=== PATIENT | female | born 1990 | race Caucasian/White ===

== ENCOUNTER 2020-03-11 06:48 | Inpatient (IN) | payer BC ==
[~2020-03-11 06:48] MED LIST: cefOXitin 2 GM Vial ONE
[2020-03-11] MEDS ORDERED: Acetaminophen 500 MG Tab PO ONE (07:00)
[2020-03-11] MEDS ORDERED: Scopolamine 1.5 MG Transdermal Patch TOP ONE (07:00)
[2020-03-11] MEDS ORDERED: Gabapentin 300 MG Cap PO ONE (07:00)
[2020-03-11] MEDS ORDERED: Celecoxib 200 MG Cap PO ONE (07:00)
[2020-03-11] MEDS ORDERED: Rocuronium 50 MG/5 ML Vial ONE ×2 (07:05→09:15)
[2020-03-11] MEDS ORDERED: Dexamethasone 4 MG/ML SDV ONE (07:05)
[2020-03-11] MEDS ORDERED: Lactated Ringers 1,000 ML ONE (07:05)
[2020-03-11] MEDS ORDERED: Succinylcholine 200 MG/10 ML MDV ONE (07:05)
[2020-03-11] MEDS ORDERED: Propofol 200 MG/20 ML SDV ONE (07:05)
[2020-03-11] MEDS ORDERED: Neostigmine Methylsulfate 1 MG/ML 5 ML Syringe ONE (07:05)
[2020-03-11] MEDS ORDERED: Glycopyrrolate 0.2 MG/ML 5 ML MDV ONE (07:05)
[2020-03-11] MEDS ORDERED: Ondansetron 4 MG/2 ML SDV ONE (07:05)
[2020-03-11] MEDS ORDERED: fentaNYL 250 MCG/5 ML SDV ONE ×2 (07:05→09:47)
[2020-03-11] MEDS ORDERED: cefOXitin 2 GM in Sodium Chloride 0.9% 50 ML IV ONE (07:15)
[2020-03-11] MEDS ORDERED: Ketamine 500 MG/5 ML MDV IV SCH (07:45)
[2020-03-11] MEDS ORDERED: Ketamine 50 MG in Sodium Chloride 0.9% 49.5 ML IV SCH (07:45)
[2020-03-11 08:12] LABS: HEMOGLOBIN A1C 5.6 % (4.5-6.2)
[2020-03-11] MEDS ORDERED: Dextrose 5%-Lactated Ringers 1,000 ML IV SCH (08:15)
[2020-03-11] MEDS ORDERED: MAGNESIUM SULFATE IV ONE (08:30)
[2020-03-11] MEDS ORDERED: SODIUM CHLORIDE 0.9% IV ONE (08:30)
[2020-03-11] MEDS ORDERED: hydrOXYzine HCL 100 MG/2 ML SDV IM ONE (12:08)
[2020-03-11] MEDS ORDERED: Labetalol 20 MG/4 ML Syringe IVPUSH PRN (15:17)
[2020-03-11] MEDS ORDERED: Metoclopramide 10 MG/2 ML SDV IVPUSH PRN (15:17)
[2020-03-11] MEDS ORDERED: Ondansetron 4 MG/2 ML SDV IVPUSH PRN (15:17)
[2020-03-11] MEDS ORDERED: diphenhydrAMINE 50 MG/ML SDV IVPUSH PRN (15:17)
[2020-03-11] MEDS ORDERED: HYDROmorphone 1 MG/ML Syringe IV PRN (15:17)
[2020-03-11] MEDS ORDERED: HYDROmorphone 0.5 MG/0.5 ML Syringe IVPUSH PRN (15:17)
[2020-03-11] MEDS ORDERED: Calcium Gluconate 10% 1 GM/10 ML SDV IVPUSH PRN (15:17)
[2020-03-11] MEDS ORDERED: Acetaminophen 500 MG Tab PO PRN (15:17)
[2020-03-11] MEDS ORDERED: hydrOXYzine HCL 100 MG/2 ML SDV IM PRN (15:17)
[2020-03-11] MEDS ORDERED: MVI, Adult with Vitamin K 10 ML, Thiamine 200 MG, Chromium/Copper/Mang/Selen/Zn 1 ML in... IV SCH ×4 (16:00)
[2020-03-11] MEDS: cefOXitin 2 GM in Sodium Chloride 0.9% 50 ML IV SCH ×2 (16:16→21:15)
[2020-03-11] MEDS: Heparin Sodium 5,000 Units/ML Vial SUBCUT SCH (16:23)
[2020-03-11] MEDS: Cyclobenzaprine 10 MG Tab PO PRN (17:01)
[2020-03-11] MEDS: Acetaminophen 500 MG Tab PO SCH (17:02)
[2020-03-11] MEDS ORDERED: Pantoprazole 40 MG Vial IVPUSH SCH (18:00)
[2020-03-11] MEDS: Doxepin 25 MG Cap PO SCH (21:13)
[2020-03-11] MEDS: Gabapentin 300 MG Cap PO SCH (21:13)
[2020-03-11] MEDS: Venlafaxine 75 MG Cap.ER PO SCH (21:14)
[2020-03-11] MEDS: Labetalol 100 MG Tab PO SCH (21:14)
[2020-03-11] MEDS: Dextrose 5%-Lactated Ringers 1,000 ML IV SCH (23:20)
[2020-03-12] MEDS: Acetaminophen 500 MG Tab PO SCH (02:07)
[2020-03-12] MEDS ORDERED: Iopamidol 612 MG/ML 50 ML SDV PO STA (03:20)
[2020-03-12] MEDS: Dextrose 5%-Lactated Ringers 1,000 ML IV SCH ×2 (04:56→13:48)
[2020-03-12] MEDS: Heparin Sodium 5,000 Units/ML Vial SUBCUT SCH ×2 (04:56→15:43)
[2020-03-12] MEDS: cefOXitin 2 GM in Sodium Chloride 0.9% 50 ML IV SCH ×2 (04:56→10:11)
[2020-03-12] MEDS ORDERED: Ondansetron 4 MG Tab.DIS PO PRN (06:52)
[2020-03-12] MEDS: SCOPOLAMINE PATCH CHECK TOP SCH (08:08)
[2020-03-12] MEDS: valACYclovir 1,000 MG Tab PO SCH (08:09)
[2020-03-12] MEDS: Labetalol 100 MG Tab PO SCH ×2 (08:09→20:47)
[2020-03-12] MEDS: Gabapentin 300 MG Cap PO SCH ×3 (08:09→20:47)
[2020-03-12] MEDS: Celecoxib 200 MG Cap PO SCH ×2 (08:10→20:46)
[2020-03-12] MEDS: Venlafaxine 75 MG Cap.ER PO SCH ×2 (08:10→20:47)
[2020-03-12] MEDS: Acetaminophen 160 MG Tab,Disintegrating PO SCH ×3 (08:21→19:09)
--- NOTE | 2020-03-12 12:09 | CR ---
[facility] HISTORY: Postbariatric surgery FINDINGS: Patient swallowed water-soluble contrast. Upright views of the abdomen show no evidence of extravasation or obstruction. There is a left upper quadrant surgical drain IMPRESSION: Status post bariatric surgery No extravasation or obstruction seen
[2020-03-12] MEDS: hydrOXYzine HCl 25 MG Tab PO PRN ×2 (12:19→19:09)
[2020-03-12] MEDS: Cyclobenzaprine 10 MG Tab PO PRN ×2 (12:19→20:45)
--- NOTE | 2020-03-12 14:25 | PN ---
DATE OF SERVICE: 03/12/2020 SUBJECTIVE: Orly is postoperative day #1. Upper GI this morning was a little bit slow. She has been up ambulating 3 times, using her incentive spirometer. Vital signs stable, afebrile. Oral intake 830 mL, urine output via Cole catheter 3655. SANDY drain put out 115 of a light red drainage. REVIEW OF SYSTEMS: Remainder of review of systems negative for any pertinent positives and negatives. OBJECTIVE: GENERAL: Orly is a pleasant 29-year-old female, alert and orientated. VITAL SIGNS: TPR at 0208; 97.7, 68, 16, blood pressure 156/87. HEENT: Negative. NECK: Supple. HEART: Regular rate and rhythm. LUNGS: Clear. ABDOMEN: Dressings dry and intact. Abdominal binder is on. EXTREMITIES: Without peripheral edema. ASSESSMENT: Laparoscopic duodenal switch, liver biopsy, repair of diaphragmatic hernia, and excision of mediastinal lipoma for morbid obesity, hepatomegaly, diaphragmatic hernia, and mediastinal lipoma. Date of surgery 03/11/2020. Surgeon: Lorne Cabezas MD. PLAN: 1. Dressing off, march shower. 2. Step 1 gastric bypass diet with milk and protein drinks. 3. Tylenol changed to Andre Meltaways 1000 mg p.o. q.6 hours. 4. Decrease IV to 100 mL per hour. 5. Discontinue IV Dilaudid. 6. Atarax 25 mg p.o. q.4 hours p.r.n. pain. 7. Zofran ODT 4 mg p.o. q.4 hours p.r.n. nausea and vomiting. 8. Communication order: 3 med cups per hour, 1 every 20 minutes to assure adequate oral intake and to teach patient how to gradually get in enough fluids throughout the day. 9. Continue ambulation and continue use of incentive spirometer. 10.We will evaluate p.r.n. or in a.m. Jenn Carreno PA-C /[id number]
[2020-03-12] MEDS ORDERED: MVI, Adult with Vitamin K 10 ML, Thiamine 200 MG, Chromium/Copper/Mang/Selen/Zn 1 ML in... IV SCH ×4 (16:00)
[2020-03-12] MEDS ORDERED: Pantoprazole 40 MG Delayed-Release Granules 1 Packet PO SCH (16:30)
[2020-03-12] MEDS: Doxepin 25 MG Cap PO SCH (20:50)
[2020-03-13] MEDS: Dextrose 5%-Lactated Ringers 1,000 ML IV SCH (01:56)
[2020-03-13] MEDS: Heparin Sodium 5,000 Units/ML Vial SUBCUT SCH (03:33)
[2020-03-13] MEDS: Acetaminophen 160 MG Tab,Disintegrating PO SCH ×2 (03:33→09:12)
[2020-03-13] MEDS: valACYclovir 1,000 MG Tab PO SCH (08:51)
[2020-03-13] MEDS: Labetalol 100 MG Tab PO SCH (08:51)
[2020-03-13] MEDS: Celecoxib 200 MG Cap PO SCH (08:51)
[2020-03-13] MEDS: Venlafaxine 75 MG Cap.ER PO SCH (08:51)
[2020-03-13] MEDS: Gabapentin 300 MG Cap PO SCH (08:51)
[2020-03-13] MEDS: SCOPOLAMINE PATCH CHECK TOP SCH (08:52)
[2020-03-13] MEDS ORDERED: Cyanocobalamin (Vitamin B12) 1,000 MCG/ML SDV IM ONE (09:00)
--- NOTE | 2020-03-13 11:10 | DISCH ---
ADMISSION DIAGNOSES: 1. Morbid obesity. 2. Body mas index of 57. 3. Essential hypertension. 4. Migraine without aura and without status migrainosus. 5. Anxiety and depression. 6. Herpes simplex. 7. Hidradenitis. DISCHARGE DIAGNOSES: 1. Laparoscopic duodenal switch. 2. Liver biopsy. 3. Repair of diaphragmatic hernia. 4. Excision of mediastinal lipoma. POSTOPERATIVE DIAGNOSES: 1. Morbid obesity. 2. Hepatomegaly. 3. Diaphragmatic hernia. 4. Mediastinal lipoma. DATE OF SURGERY: 03/11/2020. SURGEON: Lorne Cabezas MD. HISTORY: Orly Hoffman is a pleasant 29-year-old female with longstanding history of morbid obesity and increasing comorbidities. After preoperative evaluation and discussion of possible risks and possible complications, she wished to proceed with surgical procedure. HOSPITAL COURSE: Orly had her surgery on 03/11/2020. She had no operative complications. On postoperative day #1, her upper GI was normal. Her Cole catheter was discontinued. IV rate was decreased. She was able to start step 1 gastric bypass diet with no solids, and she tolerated that well. Her activity was good. Pain was controlled. She had no questions or concerns. On postoperative day #2, she was ready to be discharged in stable condition. PHYSICAL EXAMINATION: GENERAL: Orly Hoffman is a pleasant 29-year-old female. VITAL SIGNS: Height is 5 feet 10 inches. Weight is 397 pounds. TPR at 0648; 95.9, 79, 16, and blood pressure 153/87. HEENT: Negative. NECK: Supple. HEART: Regular rate and rhythm. LUNGS: Clear. ABDOMEN: Dressing is dry and intact. Abdominal binder is on. SANDY drain intact. EXTREMITIES: Without peripheral edema. DISPOSITION: Discharged to home. CONDITION: Stable and improving. FOLLOWUP APPOINTMENT: Jenn Carreno PA-C, 03/21/2020 at 10:00 a.m. NEW PRESCRIPTION: 1. Celebrex 200 mg p.o. b.i.d. 2. Cyclobenzaprine (Flexeril) 10 mg every 8 hours p.r.n. muscle spasms, #30. 3. Milk of magnesia 30 mL, take 1 daily for constipation, 2 doses were sent home with patient. 4. Zofran ODT 4 mg every 4 hours p.r.n. nausea. She is to resume home medications of Imitrex 100 mg oral as needed p.r.n. headaches, Effexor XR 75 mg oral twice daily. She has an IUD in called Marcie, levonorgestrel, and takes valacyclovir (Valtrex) 1000 mg oral as directed. Discontinue taking vitamins and supplements until after first postop appointment. DISCHARGE INSTRUCTIONS: Diet after discharge: Step 2 gastric bypass diet with no cereal until Wednesday04/12/2020. Drink 8 to 10 glasses of water a day. Other activity: Walk at least 6 times daily inside your home. Driving: Do not drive for 1 week. Notify provider if any fever, increased pain, swelling, redness, drainage, nausea, or vomiting. Wound incision care. Wear abdominal binder for 2 weeks and then as tolerated. Use incentive spirometer 10 times every hour while awake for 1 week.
[2020-03-13] MEDS ORDERED: Magnesium Hydroxide 400 MG/5 ML Susp 30 ML Cup PO ONE (12:00)
--- NOTE | 2020-03-14 11:23 | OR ---
DATE OF PROCEDURE: 03/11/2020 SURGEON: Lorne Cabezas MD PREOPERATIVE DIAGNOSIS: Morbid obesity. POSTOPERATIVE DIAGNOSES: 1. Morbid obesity. 2. Marked hepatomegaly. 3. Paraesophageal diaphragmatic hernia. 4. Mediastinal lipoma. OPERATIVE PROCEDURES: Diagnostic laparoscopy with: 1. Laparoscopic duodenal switch (68167). 2. Sanchez-Cut needle liver biopsy (18890). 3. Repair of paraesophageal diaphragmatic hernia (89372). 4. Excision of mediastinal lipoma (51028). ANESTHESIA: General. INDUSTRY ANALYST: Jenn Carreno PA-C INDICATION FOR PROCEDURE: This is a 29-year-old female presenting with longstanding morbid obesity and increasingly significant comorbidities. After preoperative evaluation and discussion, she wished to proceed with a duodenal switch. Potential risks of the procedure including bleeding, infection, leaks from various GI tract closures, as well as the possibility of cardiopulmonary, septic, or hemorrhagic complications leading to were discussed, and the patient wishes to proceed. DETAILS OF PROCEDURE: The patient was taken to the operating room and placed in a supine position. After general endotracheal anesthesia was induced, a Cole catheter was inserted, and the patient converted to a lithotomy position. The abdomen was then prepped and draped. At 20 cm inferior and 5 cm left of the xiphoid process, a transverse incision was made and the peritoneal cavity entered under direct vision with an Optiview trocar and inflated to 15 mmHg pressure with CO2. Following this, 6 additional trocars were placed across the upper and mid abdomen. Bilateral transversus abdominis plane blocks were placed. The patient was noted to have marked hepatomegaly with the liver being grossly fatty infiltrated. Sanchez-Cut needle biopsy was obtained from the left lobe of liver. Minimal bleeding from the biopsy sites was controlled with electrocautery. The liver was then retracted anteriorly. The patient was noted to have a moderate-sized paraesophageal diaphragmatic hernia with prolapse of some perigastric fat, as well as a tongue of omentum in a plane anterior to the course of the esophagus. Hernia was reduced and the peritoneum overlying incised and reflected downward. During the course of the dissection, a mediastinal lipoma was encountered, which was excised and sent as a separate specimen. Removal of the lipoma made the crural repair somewhat more adequate, and this was accomplished with 0 Ethibond sutures reinforced with PTFE pledgets. At this point, the omentum, beginning in the mid greater curvature, was divided away from the stomach with Harmonic Scalpel, and this continued proximally to include the short gastric vessels, including the highest and posterior short gastric vessels. The fundus along the left sabiha of the diaphragm was dissected somewhat further so as to avoid a cul-de-sac of the stomach in that area, following the sleeve portion of the procedure. The omentum was then divided in a distal direction to a point roughly 4 cm distal to the pylorus. The sleeve gastrectomy portion of the procedure was then initiated beginning 6 cm proximal to the pylorus, then continued underneath the incisura angularis maintaining adequate lumen so as to avoid this kinking off. First two firings were with black 60 mm loads. At that point then, a 40-Bulgarian chest tube was placed orally per Anesthesia and positioned along the lesser curvature of the stomach. Remainder of the sleeve gastrectomy was accomplished with a combination of reinforced black and reinforced purple ABHISHEK loads, and this gastric specimen was then set off to the side. The small bowel was then identified at the ileocecal valve and then traced back 300 cm distal to that point. This was confirmed to come up adequately to the area of the duodenum to complete the duodenal switch in one procession today. Given this, then the duodenum was divided 4 cm distal to the pylorus with 2 firings of the ABHISHEK beth. The small bowel 300 cm proximal to the ileocecal valve was then brought up to the divided duodenum, and stay sutures were then placed along the antimesenteric border of the small bowel at that level to the upper and lower aspects of the duodenum with 0 Ethibond stitches. Incisions were then made in the duodenum and adjacent ileum, and a two-layer closure was accomplished with outer layer of 0 Ethibond stitch and inner layer of 3-0 Vicryl stitch. Initially, a posterior layer was placed with the outer layer, and then beginning posteriorly Vicryl stitch was then placed circumferentially and tied anteriorly and then Ethibond stitch was then closed over that. The anastomosis was then reinforced with some fibrin sealant, as was the area around the esophagogastric junction. At that level, omentum was tacked up into the area around the esophagogastric junction as well, to limit leak risk at that area. At this point, air was injected into the chest tube, and the sleeve gastrectomy distended nicely while it was being covered with antibiotic-containing saline solution. No leaks were identified. Air flow through the duodenoileostomy was also confirmed with no leaks identified there as well. At that point, no further problems were noted. A single Piyush-Back drain was then taken through the left lateral trocar site and positioned up against the area of the esophagogastric junction. Prior to that, the gastric specimen had been removed. At this point, no further problems were noted. Trocars were removed and the peritoneal cavity deflated. Incision was closed with 4-0 Vicryl skin stitch and then drain affixed with a 4-0 Vicryl stitch as well. The patient was taken to the recovery room in satisfactory condition. Physician assistant offset press operator, Jenn Carreno, played an essential role in assisting in this case, helping to position the patient, retract structures as needed, as well as suturing and cutting sutures as indicated. Her presence improved patient safety and decreased the operative time. Lorne Cabezas MD /[id number]
== END 2020-03-13 11:45 | disposition home or self-care (01) | DRG 403 ==
LOC: JP.SDS 06:48 → JP.SDSSCHI 06:48 → EDSTATUS 08:15 → JP.MS 12:05
PROVIDERS: ADMIT Surgery; ATTEND Surgery
PROC: 0D194ZB Bypass Duodenum to Ileum, Percutaneous Endoscopic Approach (ICD-10-PCS; principal; 2020-03-11)
PROC: 0DB64Z3 Excision of Stomach, Percutaneous Endoscopic Approach, Vertical (ICD-10-PCS; 2020-03-11)
PROC: 0FB24ZX Excision of Left Lobe Liver, Percutaneous Endoscopic Approach, Diagnostic (ICD-10-PCS; 2020-03-11)
PROC: 0BQT4ZZ Repair Diaphragm, Percutaneous Endoscopic Approach (ICD-10-PCS; 2020-03-11)
PROC: 0JB63ZZ Excision of Chest Subcutaneous Tissue and Fascia, Percutaneous Approach (ICD-10-PCS; 2020-03-11)
DX: E66.01 Morbid (severe) obesity due to excess calories (principal); Z68.43 Body mass index [BMI] 50.0-59.9, adult; R16.0 Hepatomegaly, not elsewhere classified; D17.1 Benign lipomatous neoplasm of skin and subcutaneous tissue of trunk; K44.9 Diaphragmatic hernia without obstruction or gangrene; F41.9 Anxiety disorder, unspecified; F32.9 Major depressive disorder, single episode, unspecified; G43.909 Migraine, unspecified, not intractable, without status migrainosus; L73.2 Hidradenitis suppurativa; E78.5 Hyperlipidemia, unspecified; I10 Essential (primary) hypertension
CPT/HCPCS: 36415; 74240; 74240-26; 80053; 81025; 83036; 83735; 84100; 85027; 86850; 86900; 86901; 88304; 88307; 88313; 93005; A9270-GY; C9113; J0171; J0330; J0694; J1100; J1170; J1644; J2405; J2704; J2710; J2795; J3010; J3410; J3411; J3420; J3475; J3490; J7050; J7120; J7121; Q9967

== ENCOUNTER 2020-12-03 08:02 | Day surgery (SDC) | payer BC ==
[~2020-12-03 08:02] MED LIST changes: +Bupivacaine 0.5%/EPINEPHrine 1:200,000 50 ML MDV ONE; +Dexamethasone 4 MG/ML SDV ONE; +Glycopyrrolate 0.2 MG/ML 5 ML MDV ONE; +Neostigmine Methylsulfate 1 MG/ML 5 ML Syringe ONE; +Ondansetron 4 MG/2 ML SDV ONE; +Propofol 200 MG/20 ML SDV ONE; +Rocuronium 50 MG/5 ML Vial ONE; -cefOXitin 2 GM Vial ONE; +fentaNYL 250 MCG/5 ML SDV ONE
[2020-12-03] MEDS ORDERED: fentaNYL 100 MCG/2 ML SDV ONE (08:44)
[2020-12-03] MEDS ORDERED: Midazolam 1 MG/ML 2 ML SDV ONE (08:44)
[2020-12-03] MEDS ORDERED: Propofol 200 MG/20 ML SDV ONE (08:44)
[2020-12-03] MEDS ORDERED: Dextrose 5%-Lactated Ringers 1,000 ML IV SCH (09:00)
[2020-12-03] MEDS ORDERED: Acetaminophen 500 MG Tab PO ONE (09:00)
[2020-12-03] MEDS ORDERED: Scopolamine 1.5 MG Transdermal Patch TOP SCH (09:00)
[2020-12-03] MEDS: cefOXitin 2 GM in Sodium Chloride 0.9% 50 ML IV ONE ×2 (10:13→15:52)
[2020-12-03] MEDS ORDERED: Ketamine 500 MG/5 ML MDV IV SCH (10:15)
[2020-12-03] MEDS ORDERED: Ropivacaine 50 ML, dexAMETHasone 8 MG, EPINEPHrine 0.4 MG, Sodium Chloride 0.9% 27.6 ML NERVRT SCH ×4 (10:15)
[2020-12-03] MEDS ORDERED: Ketamine 50 MG in Sodium Chloride 0.9% 49.5 ML IV SCH (10:15)
[2020-12-03] MEDS ORDERED: Lactated Ringers 1,000 ML ONE (11:11)
[2020-12-03] MEDS ORDERED: Zolpidem 5 MG Tab PO PRN (12:51)
[2020-12-03] MEDS ORDERED: HYDROmorphone 0.5 MG/0.5 ML Syringe IVPUSH PRN (13:00)
[2020-12-03] MEDS ORDERED: Ondansetron 4 MG/2 ML SDV IVPUSH PRN (13:00)
[2020-12-03] MEDS ORDERED: HYDROmorphone 1 MG/ML Syringe IV PRN (13:00)
[2020-12-03] MEDS ORDERED: Pantoprazole 40 MG Vial IVPUSH SCH (14:00)
[2020-12-03] MEDS: cefOXitin 2 GM in Sodium Chloride 0.9% 50 ML IV SCH ×2 (15:27→22:05)
[2020-12-03] MEDS: Dextrose 5%-Lactated Ringers 1,000 ML IV SCH (17:31)
[2020-12-03] MEDS: Acetaminophen/HYDROcodone 325-5 MG Tab PO PRN ×2 (18:09→22:04)
[2020-12-03] MEDS: VERIFY SCOP PATCH TOP SCH (18:10)
[2020-12-03] MEDS: Venlafaxine 75 MG Tab PO SCH (20:32)
[2020-12-03] MEDS: Venlafaxine 37.5 MG Tab PO SCH (20:32)
[2020-12-03] MEDS ORDERED: Venlafaxine 75 MG Tab PO SCH (21:00)
[2020-12-03] MEDS ORDERED: Venlafaxine 75 MG Cap.ER PO SCH (21:00)
[2020-12-04] MEDS: Dextrose 5%-Lactated Ringers 1,000 ML IV SCH (02:06)
[2020-12-04] MEDS: Acetaminophen/HYDROcodone 325-5 MG Tab PO PRN ×3 (02:30→11:50)
[2020-12-04] MEDS: Venlafaxine 75 MG Tab PO SCH (08:05)
[2020-12-04] MEDS: Venlafaxine 37.5 MG Tab PO SCH (08:11)
--- NOTE | 2020-12-04 08:25 | DISCH ---
ADMISSION DIAGNOSIS: Chronic cholecystitis and cholelithiasis. DISCHARGE DIAGNOSES: Laparoscopic cholecystectomy on 12/03/2020. Surgeon: Lorne Cabezas MD. HISTORY: Orly Hoffman is a 30-year-old female with chronic cholecystitis and cholelithiasis. After preoperative evaluation and discussion of possible risks and possible complications, she wished to proceed with surgical procedure. HOSPITAL COURSE: Orly had her surgery on 12/03/2020. She had no operative complications. On postoperative day #1, she was able to be discharged to home. Activity good. Vital signs stable, and pain was well managed. Oral intake was adequate. PHYSICAL EXAMINATION: GENERAL: Orly Hoffman is a 30-year-old female. She is alert and orientated. VITAL SIGNS: Height 5 feet 10 inches, weight is 217 pounds. BMI is 31. TPR is 97.5, 55, 16, and blood pressure 116/78. HEENT: Negative. NECK: Supple. HEART: Regular rate and rhythm. LUNGS: Clear. ABDOMEN: Dressings dry and intact. Abdominal binder is on. EXTREMITIES: Without peripheral edema. DISPOSITION: Discharged to home. CONDITION: Stable and improving. FOLLOWUP APPOINTMENT: 12/10/2020 at 9:30 a.m. for a virtual appointment, which will be combined postop with her 9-month post duodenal switch. She will get her sutures removed by her primary care provider on 12/13/2020. HOME MEDICATIONS: Diflucan 100 mg p.o. daily, #7; [place] 5/325 mg 1 to 2 tablets every 4 hours p.r.n. pain, #40. To resume all home medications. DIET: Usual diet as tolerated. Drink 8 to 10 glasses of water a day. ACTIVITY: As tolerated. No lifting greater than 10 pounds for 2 weeks. Driving: Do not drive for 1 week. Shower/bathing: May shower. DISCHARGE INSTRUCTIONS: Keep operative site clean and dry. Wear abdominal binder for 2 weeks and then as tolerated. Notify provider if any fever, increased pain, swelling, redness, drainage, nausea, or vomiting. SPECIAL INSTRUCTION: Use incentive spirometer 10 times every hour while awake for 1 week. /[id number]
[2020-12-04] MEDS ORDERED: valACYclovir 1,000 MG Tab PO SCH (09:00)
[2020-12-04] MEDS ORDERED: Estradiol 0.5 MG Tab PO SCH (09:00)
[2020-12-04] MEDS: VERIFY SCOP PATCH TOP SCH (12:23)
--- NOTE | 2020-12-08 15:22 | OR ---
DATE OF PROCEDURE: 12/03/2020 SURGEON: Lorne Cabezas MD PREOPERATIVE DIAGNOSIS: Chronic cholecystitis and cholelithiasis. POSTOPERATIVE DIAGNOSIS: Chronic cholecystitis and cholelithiasis. OPERATIVE PROCEDURE: Laparoscopic cholecystectomy (99566). ANESTHESIA: General. DIRECTOR OF ARCHIVES: Jenn Carreno PA-C. INDICATIONS FOR PROCEDURE: This is a 30-year-old status post previous Lance-en-Y gastric bypass presenting with cholelithiasis along with a nonfunctioning gallbladder. The plan is to proceed with a laparoscopic cholecystectomy. Potential risks of the procedure including bleeding, infection, injury to underlying viscera, problems with stones migrating to the common bile duct requiring additional procedures for correction were all reviewed and the patient wishes to proceed. DETAILS OF PROCEDURE: The patient was taken to the operating room and placed in a supine position. After general endotracheal anesthesia was induced, the abdomen was prepped and draped. A transverse epigastric incision was made. The peritoneal cavity entered under direct vision with an Optiview trocar and inflated to 15 mmHg pressure with CO2. Laparoscope was then reinserted. No underlying trocar insertion site injuries were seen. Following this, a 12 mm subumbilical trocar was placed along with 5 mm right subcostal trocar. The gallbladder was noted to be somewhat bhatia and edematous and contained some omental adhesions. The gallbladder was taken down with Harmonic scalpel and dissection then continued around the gallbladder neck and cystic duct junction. Once that area was well delineated along with the adjacent cystic artery, both structures were divided with clips 3 times proximally and once distally and divided and then the gallbladder dissected off the gallbladder bed using Harmonic scalpel and delivered through the epigastric trocar site. The gallbladder noted to contain a multitude of small black stones within it. The area of dissection was inspected. Piyush-Back drain was taken out of the right lateral trocar site and positioned in the area of the gallbladder fossa. There were no other problems noted. Bilateral subcostal transverse abdominis plane blocks were placed and the trocars removed. The fascia at the 12 mm site was closed with 0 Vicryl stitch and skin with 4-0 Vicryl skin stitch. Dressing was applied. The patient was taken to the recovery room in satisfactory condition. Physician assistant professor of radiology, Jenn Carreno, played an essential role in assisting in this case helping to position the patient, retract structures as needed as well as suturing and cutting sutures when indicated. Her presence improved patient safety and decreased the operative time. Lorne Cabezas MD /[id number]
== END 2020-12-04 13:10 | disposition home or self-care (01) ==
LOC: JP.SDS 08:02 → JP.MS 11:25 → JP.SDS 12-04 13:10
PROVIDERS: ATTEND Surgery
DX: K80.10 Calculus of gallbladder with chronic cholecystitis without obstruction (principal); E78.5 Hyperlipidemia, unspecified; I10 Essential (primary) hypertension; E66.9 Obesity, unspecified; Z98.84 Bariatric surgery status; Z79.899 Other long term (current) drug therapy; Z88.8 Allergy status to other drugs, medicaments and biological substances; Z68.31 Body mass index [BMI] 31.0-31.9, adult
CPT/HCPCS: 36415; 47562; 81025; 82247; 84075; 85025; 88304; A9270; C9113; J0171; J0694; J1100; J1170; J2250; J2405; J2704; J2710; J2795; J3010; J3490; J7120; J7121

== ENCOUNTER 2021-03-28 08:49 | Day surgery (SDC) | payer BC ==
[~2021-03-28 08:49] MED LIST changes: -Bupivacaine 0.5%/EPINEPHrine 1:200,000 50 ML MDV ONE; -Dexamethasone 4 MG/ML SDV ONE; -Glycopyrrolate 0.2 MG/ML 5 ML MDV ONE; +Lactated Ringers 1,000 ML IV ONE; +Midazolam 1 MG/ML 2 ML SDV ONE; -Neostigmine Methylsulfate 1 MG/ML 5 ML Syringe ONE; -Ondansetron 4 MG/2 ML SDV ONE; -Rocuronium 50 MG/5 ML Vial ONE; +fentaNYL 100 MCG/2 ML SDV ONE; -fentaNYL 250 MCG/5 ML SDV ONE
[2021-03-28] MEDS ORDERED: Scopolamine 1.5 MG Transdermal Patch TRDERM SCH (09:25)
[2021-03-28] MEDS ORDERED: Lactated Ringers 1,000 ML IV ONE (09:30)
[2021-03-28] MEDS ORDERED: Cyanocobalamin (Vitamin B12) 1,000 MCG/ML SDV IM ONE (09:45)
[2021-03-28] MEDS ORDERED: Glycopyrrolate 0.2 MG/ML 2 ML SDV IVPUSH ONE (10:00)
[2021-03-28] MEDS ORDERED: MVI, Adult with Vitamin K 10 ML, Thiamine 200 MG, Chromium/Copper/Mang/Selen/Zn 1 ML in... IV ONE ×4 (10:45)
[2021-03-28] MEDS ORDERED: Propofol 200 MG/20 ML SDV ONE (11:46)
--- NOTE | 2021-04-06 15:19 | OR ---
DATE OF PROCEDURE: 03/28/2021 SURGEON: Lorne Cabezas MD PREOPERATIVE DIAGNOSES: Persistent nausea and epigastric discomfort, status post duodenal switch. POSTOPERATIVE DIAGNOSES: 1. Extensive bile with esophagitis, gastritis, and duodenitis secondary to retained bile. 2. Suture eroded into lumen at duodenal ileostomy. OPERATIVE PROCEDURE: Upper gastrointestinal endoscopy with removal of foreign body (suture) at the duodenal ileostomy (05651). ANESTHESIA: IV sedation. INDICATIONS FOR PROCEDURE: The patient is status post duodenal switch little over a year ago. She presents now with ongoing nausea. The plan is to proceed with an upper GI endoscopy with biopsies and/or dilation as indicated. Potential risks including bleeding and perforation were discussed, and the patient wishes to proceed. DESCRIPTION OF PROCEDURE: She was taken to the operating room, placed in a left lateral decubitus position. IV sedation was administered after which the upper GI endoscope was passed orally through the length of the esophagus and then to the sleeve gastrectomy portion of the stomach, and from there, through the pylorus and duodenal ileostomy. The patient was noted to have extensive bile within the esophagus, the entire remaining stomach, and proximal duodenum. This was associated with diffuse inflammation in those areas. This was particularly prominent in the area of the duodenal bulb. This was not overtly ulcerated, but markedly edematous, reddened, and somewhat firm. The duodenal ileostomy itself was patent, and the small bowel beyond that point was unremarkable. There was a suture eroded into the lumen of the duodenal ileostomy. This was removed with endoscopic scissors and the procedure then concluded. At this point, the patient would appear to probably be having some problems with impaired gastric emptying resulting in the bile flowing in the above-noted locations and would probably benefit from conversion of a [id number] duodenal ileostomy to a Geis-tr-W-type configuration with evaluation of the limbs. The patient has lost a little bit more than the intended amount of weight, and we will assess that situation intraoperatively. We will schedule it for next Wednesday as an open approach. Lorne Cabezas MD /[id number]
== END 2021-03-28 12:40 | disposition home or self-care (01) ==
LOC: JP.SDS 08:49
PROVIDERS: ATTEND Surgery
DX: T18.3XXA Foreign body in small intestine, initial encounter (principal); K29.90 Gastroduodenitis, unspecified, without bleeding; K20.90 Esophagitis, unspecified without bleeding; Z93.2 Ileostomy status
CPT/HCPCS: 36415; 43247; 80053; 83735; 84100; 85027; A9270; J2250; J2704; J3010; J3411; J3420; J3490; J7120

== ENCOUNTER 2021-04-01 10:27 | Inpatient (IN) | payer BC ==
[~2021-04-01 10:27] MED LIST changes: +Dexamethasone 4 MG/ML SDV ONE; +Glycopyrrolate 0.2 MG/ML 5 ML MDV ONE; -Lactated Ringers 1,000 ML IV ONE; +Meropenem 500 MG SDV ONE; -Midazolam 1 MG/ML 2 ML SDV ONE; +Neostigmine Methylsulfate 1 MG/ML 5 ML Syringe ONE; +Ondansetron 4 MG/2 ML SDV ONE; +Rocuronium 50 MG/5 ML Vial ONE; +Succinylcholine 200 MG/10 ML MDV ONE; -fentaNYL 100 MCG/2 ML SDV ONE; +fentaNYL 250 MCG/5 ML SDV ONE
[2021-04-01] MEDS ORDERED: Ondansetron 4 MG/2 ML SDV IVPUSH PRN ×2 (10:42→18:00)
[2021-04-01] MEDS ORDERED: Naloxone 0.4 MG/ML SDV IVPUSH PRN (10:42)
[2021-04-01] MEDS ORDERED: HYDROmorphone/Normal Saline 15 MG/30 ML PCA IV PRN (10:42)
[2021-04-01] MEDS ORDERED: diphenhydrAMINE 50 MG/ML SDV IVPUSH PRN ×2 (10:42→18:00)
[2021-04-01] MEDS ORDERED: diphenhydrAMINE 25 MG Cap PO PRN (10:42)
[2021-04-01] MEDS ORDERED: Scopolamine 1.5 MG Transdermal Patch TOP SCH (10:45)
[2021-04-01] MEDS ORDERED: Acetaminophen 500 MG Tab PO ONE (10:45)
[2021-04-01] MEDS ORDERED: Naloxone 0.4 MG/ML SDV IV PRN (11:00)
[2021-04-01] MEDS ORDERED: Dextrose 5%-Lactated Ringers 1,000 ML IV SCH (11:30)
[2021-04-01] MEDS ORDERED: cefOXitin 2 GM in Sodium Chloride 0.9% 50 ML IV ONE (11:45)
[2021-04-01] MEDS ORDERED: Ketamine 500 MG/5 ML MDV IV SCH (12:00)
[2021-04-01] MEDS ORDERED: MAGNESIUM SULFATE IV ONE (12:00)
[2021-04-01] MEDS ORDERED: Ketamine 50 MG in Sodium Chloride 0.9% 49.5 ML IV SCH (12:00)
[2021-04-01] MEDS ORDERED: SODIUM CHLORIDE 0.9% IV ONE (12:00)
[2021-04-01] MEDS ORDERED: Magnesium Sulfate 2.3 GM in Sodium Chloride 0.9% 100 ML IV SCH (12:00)
--- NOTE | 2021-04-01 12:45 | PCM.HP.2 ---
H&P History of Present Illness - General Date of Service: 04/01/21 Admit Problem/Dx: Severe Acid Relux following a Duodenal Switch Weight Loss Surgery. Scheduled for Open Revision of Duodenoileostomy today case to follow. - History of Present Illness Initial Comments - Free Text/Narative: Orly had a Laparoscopic Duodenal Switch on 03/11/2020 and she has lost 215.5 lbs. She has had intermittent nausea and vomiting on and off for several weeks which has gotten more severe. An EGD was done last week and she was found to have severe bile reflux. Onset of Symptoms: Reports: Gradual Duration of Symptoms: Reports: Week(s): Location: Reports: Abdomen Quality: Reports: Burning Severity: Moderate Improves with: Reports: None Worsens with: Reports: None Associated Symptoms: Reports: Nausea/Vomiting - Related Data Allergies/Adverse Reactions: Allergies Allergy/AdvReac Type Severity Reaction Status Date / Time cat dander Allergy Other Verified 04/01/21 10:55 miconazole Allergy Rash Verified 04/01/21 10:55 sulfamethoxazole AdvReac Unknown Diarrhea Verified 04/01/21 10:55 [From Sulfamethoxazole-Trimethoprim] trimethoprim AdvReac Unknown Diarrhea Verified 04/01/21 10:55 [From Sulfamethoxazole-Trimethoprim] Home Medications: Home Meds SUMAtriptan succinate [Imitrex] 100 mg PO ASDIRECTED PRN 03/08/20 [History] levonorgestreL [Marcie] 1 each IY ASDIRECTED 03/08/20 [History] valACYclovir [Valtrex] 1,000 mg PO DAILY 03/08/20 [History] Ondansetron [Zofran ODT] 4 mg PO Q4H PRN #30 tab.dis 03/13/20 [Rx] Calcium Citrate/Vitamin D3 [Calcium Citrate - Vit D Caplet] 1 tab PO BID 11/29/20 [History] Cholecalciferol (Vitamin D3) [Vitamin D3] 10,000 unit PO DAILY 11/29/20 [History] Cyanocobalamin (Vitamin B-12) [B-12] 1 tab SL DAILY 11/29/20 [History] Folic Acid 1 mg PO BID 11/29/20 [History] Multivitamin 1 tab PO BID 11/29/20 [History] Nystatin [Mycostatin] 1 g TOP BID PRN 11/29/20 [History] Pantoprazole Sodium [Protonix] 40 mg PO DAILY 11/29/20 [History] Vitamin A 60,000 mg PO DAILY 11/29/20 [History] Vitamin B Complex [B Complex] 1 tab PO DAILY 11/29/20 [History] Zolpidem [Ambien] 5 mg PO QPM 11/29/20 [History] estradioL [Estrace] 1 mg PO DAILY 11/29/20 [History] Iron,Carbonyl/Vit C/Vit B12/Fa [Iron 100 Plus Tablet] 1 tab PO DAILY 12/03/20 [History] Venlafaxine [Effexor] 150 mg PO BID 12/03/20 [History] Past Medical History HEENT History: Reports: None Cardiovascular History: Reports: Hypertension Respiratory History: Reports: Sleep Apnea Gastrointestinal History: Reports: Cholelithiasis, Chronic Diarrhea, GERD, Hiatal Hernia GASTROENTEROLOGY NURSE History: Reports: Polycystic Ovaries, Other (See Below) Other OB/BYN History: IUD Neurological History: Reports: Migraines, Vertigo Psychiatric History: Reports: Anxiety, Depression Endocrine/Metabolic History: Reports: Obesity/BMI 30+ Hematologic History: Reports: B12 Deficiency Dermatologic History: Reports: Psoriasis - Infectious Disease History Infectious Disease History: Reports: Chicken Pox - Past Surgical History HEENT Surgical History: Reports: Adenoidectomy, LASIK, Myringotomy w Tube(s), Tonsillectomy Cardiovascular Surgical History: Reports: None Respiratory Surgical History: Reports: None GI Surgical History: Reports: Bariatric Procedure, EGD, Jennifer Fundoplication Endocrine Surgical History: Reports: None Neurological Surgical History: Reports: None Dermatological Surgical History: Reports: None Social & Family History - Family History Family Medical History: No Pertinent Family History - Tobacco Use Tobacco Use Status *Q: Never Tobacco User - Caffeine Use Caffeine Use: Reports: None - Recreational Drug Use Recreational Drug Use: No H&P Review of Systems - Review of Systems: Review Of Systems: See Below General: Reports: Weakness, Fatigue, Weight Loss HEENT: Reports: No Symptoms Pulmonary: Reports: No Symptoms Cardiovascular: Reports: No Symptoms Gastrointestinal: Reports: Abdominal Pain (mid epigastric pain ), Nausea, Vomiting Genitourinary: Reports: No Symptoms Musculoskeletal: Reports: No Symptoms Skin: Reports: No Symptoms Psychiatric: Reports: No Symptoms Neurological: Reports: No Symptoms Hematologic/Lymphatic: Reports: No Symptoms Immunologic: Reports: No Symptoms Exam - Exam Exam: See Below - Vital Signs Vital Signs: Last Vital Signs Temp 98.4 F 04/01/21 11:01 Pulse 71 04/01/21 11:01 Resp 18 04/01/21 11:01 BP 129/92 H 04/01/21 11:01 Pulse Ox 100 04/01/21 11:01 Weight: 175 lb 12.8 oz - Exam General: Alert, Oriented, Cooperative, Mild Distress HEENT: PERRLA Neck: Supple, Trachea Midline Lungs: Clear to Auscultation, Normal Respiratory Effort Cardiovascular: Regular Rate, Regular Rhythm GI/Abdominal Exam: Soft, Non-Tender, No Distention (Female) Exam: Deferred Rectal (Female) Exam: Deferred Back Exam: Normal Inspection, Full Range of Motion Extremities: Normal Inspection, Normal Range of Motion, Non-Tender, No Pedal Edema Skin: Warm, Dry, Intact Neurological: Cranial Nerves Intact, Reflexes Equal Bilateral Neuro Extensive - Mental Status: Alert, Oriented x3, Normal Mood/Affect, Normal Cognition Neuro Extensive - Motor, Sensory, Reflexes: CN II-XII Intact, Normal Gait, Normal Reflexes Psychiatric: Alert, Normal Affect Sepsis Event Note - Focused Exam Vital Signs: Vital Signs Temp Pulse Resp BP Pulse Ox 04/01/21 11:01 98.4 F 71 18 129/92 H 100 - Problem List (1) Gastric reflux SNOMED Code(s): 332349865 ICD Code: K21.9 - GASTRO-ESOPHAGEAL REFLUX DISEASE WITHOUT ESOPHAGITIS Status: Acute Current Visit: Yes Problem List Initiated/Reviewed/Updated: Yes Orders Last 24hrs: Active Orders 24 hr Category Date Time Status Communication Order [RC] Per Unit Routine Care 04/01/21 10:42 Active EKG Documentation Completion [RC] ASDIRECTED Care 04/01/21 11:37 Active INVESTMENT MANAGER Record [RC] Q4H Care 04/01/21 10:42 Active RT Incentive Spirometry [RC] ASDIRECTED Care 04/01/21 10:30 Active Vital Signs [RC] PER UNIT ROUTINE Care 04/01/21 10:42 Active HCG QUALITATIVE,SERUM [CHEM] Routine Lab 04/01/21 12:33 Ordered Dextrose 5%-Lactated Ringers 1,000 ml Med 04/01/21 11:30 Active IV ASDIRECTED HYDROmorphone/Normal Saline [Dilaudid INVESTMENT MANAGER 15 MG in NS Med 04/01/21 10:42 Active 30 ML] See Protocol IV ASDIRECTED PRN Ketamine [Ketalar] Med 04/01/21 12:00 Active 34 mg IV ASDIRECTED Ketamine [Ketalar] 50 mg Med 04/01/21 12:00 Active Sodium Chloride 0.9% [Normal Saline] 49.5 ml IV ASDIRECTED Magnesium Sulfate [Magnesium Sulfate 50%] 2.3 gm Med 04/01/21 12:00 Active Sodium Chloride 0.9% [Normal Saline] 100 ml IV ASDIRECTED Magnesium Sulfate [Magnesium Sulfate 50%] 2.5 gm Med 04/01/21 12:00 Active Sodium Chloride 0.9% [Normal Saline] 250 ml IV ONETIME Naloxone [Narcan] Med 04/01/21 11:00 Active 0.1 mg IV ASDIRECTED PRN Ondansetron [Zofran] Med 04/01/21 10:42 Ordered 4 mg IVPUSH Q6H PRN Ropivacaine [Naropin 0.5%] 39 ml Med 04/01/21 12:00 Active dexAMETHasone [Decadron] 8 mg EPINEPHrine [Adrenalin] 0.4 mg Sodium Chloride 0.9% [Normal Saline] 38.6 ml NERVRT ASDIRECTED Scopolamine [Transderm-Scop] Med 04/01/21 10:45 Active 1.5 mg TOP Q72H diphenhydrAMINE [Benadryl] Med 04/01/21 10:42 Ordered 25 mg IVPUSH Q6H PRN diphenhydrAMINE [Benadryl] Med 04/01/21 10:42 Ordered 25 mg PO Q6H PRN Pulse Oximetry Continuous Monitoring [OM.PC] Routine Oth 04/01/21 10:42 Ordered Sequential Compression Device [OM.PC] Routine Oth 04/01/21 10:30 Ordered EKG 12 Lead [EK] Routine Ther 04/01/21 11:37 Ordered Medication Orders Ropivacaine 39 ml/Dexamethasone 8 mg/Epinephrine HCl 0.4 mg/ Sodium Chloride 38.6 ml 0 ml NERVRT ASDIRECTED WALE Diphenhydramine HCl (Diphenhydramine 50 Mg/Ml Sdv) 25 mg IVPUSH Q6H PRN PRN Reason: Itching Diphenhydramine HCl (Diphenhydramine 25 Mg Cap) 25 mg PO Q6H PRN PRN Reason: Itching Hydromorphone HCl (Hydromorphone/Normal Saline 15 Mg/30 Ml Global Safety Officer) 0 mg IV ASDIRECTED PRN; Protocol PRN Reason: Pain Last Admin: 04/01/21 11:13 Dose: 0.3 mg Documented by: LORENA Dextrose/Lactated Ringer's (Dextrose 5%-Lactated Ringers) 1,000 mls @ 100 mls/hr IV ASDIRECTED WALE Last Admin: 04/01/21 10:53 Dose: 100 mls/hr Documented by: KJ Ketamine HCl 50 mg/ Sodium (Chloride) 50 mls @ 20.55 mls/hr IV ASDIRECTED WALE Magnesium Sulfate 2.3 gm/ (Sodium Chloride) 104.6 mls @ 209.2 mls/hr IV ASDIRECTED WALE Magnesium Sulfate 2.5 gm/ (Sodium Chloride) 255 mls @ 31.875 mls/hr IV ONETIME ONE Stop: 04/01/21 19:59 Ketamine HCl (Ketamine 500 Mg/5 Ml Mdv) 34 mg IV ASDIRECTED WALE Naloxone HCl (Naloxone 0.4 Mg/Ml Sdv) 0.1 mg IV ASDIRECTED PRN PRN Reason: decreased respiratory rate Ondansetron HCl (Ondansetron 4 Mg/2 Ml Sdv) 4 mg IVPUSH Q6H PRN PRN Reason: Nausea/Vomiting Scopolamine (Scopolamine 1.5 Mg Transdermal Patch) 1.5 mg TOP Q72H [facility] Stop: 04/03/21 10:00 Last Admin: 04/01/21 10:54 Dose: 1.5 mg Documented by: KJ Assessment: Severe Bile Reflux Duodenal Switch Plan: Patient is cleared for General Anesthesia Jenn CAMARA Cp 04/01/2021 - Mortality Measure Prognosis:: Good
[2021-04-01] MEDS ORDERED: Lactated Ringers 1,000 ML ONE (12:47)
[2021-04-01] MEDS: Dextrose 5%-Lactated Ringers 1,000 ML IV SCH (16:30)
[2021-04-01] MEDS ORDERED: Zolpidem 5 MG Tab PO PRN (17:15)
[2021-04-01] MEDS: hydrOXYzine HCL 100 MG/2 ML SDV IM PRN (17:21)
[2021-04-01] MEDS: Acetaminophen 500 MG Tab PO SCH (17:27)
[2021-04-01] MEDS: Cyclobenzaprine 10 MG Tab PO PRN (17:43)
[2021-04-01] MEDS: cefOXitin 2 GM in Sodium Chloride 0.9% 50 ML IV SCH (17:54)
[2021-04-01] MEDS ORDERED: Calcium Gluconate 10% 1 GM/10 ML SDV IVPUSH PRN (18:00)
[2021-04-01] MEDS ORDERED: Labetalol 20 MG/4 ML Syringe IVPUSH PRN (18:00)
[2021-04-01] MEDS ORDERED: MVI, Adult with Vitamin K 10 ML, Thiamine 200 MG, Zinc/Copper/Manganese/Selenium 1 ML i... IV SCH ×4 (18:00)
[2021-04-01] MEDS ORDERED: Metoclopramide 10 MG/2 ML SDV IVPUSH PRN (18:00)
[2021-04-01] MEDS ORDERED: Acetaminophen 500 MG Tab PO PRN (18:00)
[2021-04-01] MEDS ORDERED: Pantoprazole 40 MG Vial IVPUSH SCH (18:00)
[2021-04-01] MEDS: Heparin Sodium 5,000 Units/ML Vial SUBCUT SCH (20:24)
[2021-04-01] MEDS: Venlafaxine 75 MG Tab PO SCH (20:24)
[2021-04-02] MEDS: Dextrose 5%-Lactated Ringers 1,000 ML IV SCH ×2 (00:24→05:55)
[2021-04-02] MEDS: cefOXitin 2 GM in Sodium Chloride 0.9% 50 ML IV SCH ×5 (00:24→23:30)
[2021-04-02] MEDS ORDERED: Iopamidol 612 MG/ML 50 ML SDV PO STA (04:01)
[2021-04-02] MEDS: Acetaminophen 500 MG Tab PO SCH ×3 (04:22→17:58)
--- NOTE | 2021-04-02 08:44 | PN ---
DATE OF SERVICE: 04/01/2021 SUBJECTIVE: Orly is postop day #1. Oral intake 300, output 630. SANDY drain put out 135 mL of a light pink drainage. She reports her pain is controlled. She has no questions or concerns. OBJECTIVE: GENERAL: Orly Hoffman is a pleasant 30-year-old female. She is alert and orientated. ASSESSMENT: 1. Exploratory laparotomy with: a. Distal gastrectomy with Lance-en-Y gastroenterostomy. b. Small-bowel stricture plasty. POSTOPERATIVE DIAGNOSIS: 1. Persistent bile reflux gastritis with thick and densely scarred proximal duodenum. 2. Focal stricture at the point of takedown with takedown divisions of ileostomy. 3. Date of procedure 04/01/2021. Surgeon: Lorne Cabezas MD. PLAN: 1. Discontinue Cole catheter. 2. Decrease IV to 100 mL per hours at 1400. 3. Check CBC, CMP, mag, phos in a.m. 4. Step 2 gastric bypass diet without cereal. 5. Protein supplements q.i.d. and p.r.n. 6. Continue use of incentive spirometer. 7. We will evaluate p.r.n. or in a.m. Jenn Carreno PA-C /[id number]
--- NOTE | 2021-04-02 09:14 | CR ---
UGI Limited HISTORY: Postbariatric surgery FINDINGS: Patient swallowed water-soluble contrast. Upright views of the abdomen show no evidence of extravasation or obstruction. There is a surgical drain in the upper abdomen. IMPRESSION: Status post bariatric surgery No extravasation or obstruction seen
[2021-04-02] MEDS: Heparin Sodium 5,000 Units/ML Vial SUBCUT SCH ×2 (10:44→20:08)
[2021-04-02] MEDS: Estradiol 0.5 MG Tab PO SCH (10:44)
[2021-04-02] MEDS: Venlafaxine 75 MG Tab PO SCH ×2 (10:44→20:08)
[2021-04-02] MEDS: valACYclovir 1,000 MG Tab PO SCH (10:45)
[2021-04-02] MEDS: SCOPOLAMINE PATCH CHECK TOP SCH (10:45)
[2021-04-02] MEDS ORDERED: Dextrose 5%-Lactated Ringers 1,000 ML IV SCH ×2 (11:45→14:00)
[2021-04-02] MEDS: hydrOXYzine HCL 100 MG/2 ML SDV IM PRN ×2 (12:39→23:13)
[2021-04-02] MEDS: Cyclobenzaprine 10 MG Tab PO PRN ×2 (12:39→23:13)
--- NOTE | 2021-04-02 14:22 | PCM.EKG ---
#1 Interpretation EKG Date: 04/01/21 Time: 11:44 Rhythm: NSR Rate (Beats/Min): 67 [place]: Normal P-Wave: Present QRS: Normal ST-T: Normal QT: Normal Comparison: No Change
[2021-04-02] MEDS ORDERED: MVI, Adult with Vitamin K 10 ML, Thiamine 200 MG, Zinc/Copper/Manganese/Selenium 1 ML i... IV SCH ×4 (16:00)
[2021-04-02] MEDS: Pantoprazole 40 MG Delayed-Release Granules 1 Packet PO SCH (16:31)
[2021-04-03] MEDS: Acetaminophen 500 MG Tab PO SCH ×3 (01:35→17:08)
[2021-04-03] MEDS: cefOXitin 2 GM in Sodium Chloride 0.9% 50 ML IV SCH (05:29)
[2021-04-03] MEDS: HYDROmorphone 2 MG Tab PO PRN ×3 (07:44→21:29)
[2021-04-03] MEDS: Cyclobenzaprine 10 MG Tab PO PRN ×2 (07:45→22:11)
[2021-04-03] MEDS ORDERED: Cyanocobalamin (Vitamin B12) 1,000 MCG/ML SDV IM ONE (09:00)
--- NOTE | 2021-04-03 09:01 | PN ---
DATE OF SERVICE: 04/03/2021 SUBJECTIVE: Orly is postoperative day 2. She has quite a bit of pain getting in and out of bed. Otherwise, she states when she is up and walking, she feels better with sitting. Oral intake 900, output 1450. SANDY drain put out 130 mL of a light pink drainage. She is not passing any flatus. REVIEW OF SYSTEMS: Remainder of review of systems negative for any pertinent positives and negatives. OBJECTIVE: GENERAL: Orly Hoffman is a pleasant 30-year-old female. She is alert and orientated. VITAL SIGNS: TPR is 95.6, 75, 18. Blood pressure 102/63. HEENT: Negative. NECK: Supple. HEART: Regular rate and rhythm. LUNGS: Clear. ABDOMEN: Aquacel dressing is on. Abdominal binder is on. SANDY drain as above. EXTREMITIES: Without peripheral edema. ASSESSMENT: Exploratory laparotomy with: 1. Distal gastrectomy with Alnce-en-Y gastroenterostomy. 2. Small-bowel strictureplasty. POSTOPERATIVE DIAGNOSES: 1. Persistent bile reflux gastritis with thick and densely scarred proximal duodenum. 2. Focal stricture at the point of transition with takedown divisions of ileostomy. Date of procedure 04/01/2021. Surgeon: Lorne Cabezas MD. PLAN: 1. Discontinue ACCOUNTING TUTOR, continuous pulse ox. 2. Discontinue SANDY drain. 3. Dilaudid 2 to 4 mg every 4 hours p.r.n. pain. 4. Colace 100 mg p.o. b.i.d. 5. Dulcolax 10 mg p.o. b.i.d. May stop after patient has a bowel movement. 6. Continue to work on incentive spirometer. 7. We will evaluate p.r.n. or in a.m. Jenn Carreno PA-C /[id number]
[2021-04-03] MEDS: Estradiol 0.5 MG Tab PO SCH (09:14)
[2021-04-03] MEDS: valACYclovir 1,000 MG Tab PO SCH (09:14)
[2021-04-03] MEDS: Heparin Sodium 5,000 Units/ML Vial SUBCUT SCH ×2 (09:14→21:29)
[2021-04-03] MEDS: Venlafaxine 75 MG Tab PO SCH ×2 (09:14→21:29)
[2021-04-03] MEDS: Bisacodyl 5 MG Tab PO SCH ×2 (09:15→21:28)
[2021-04-03] MEDS: Docusate Sodium 100 MG Cap PO SCH ×2 (09:15→21:29)
[2021-04-03] MEDS: SCOPOLAMINE PATCH CHECK TOP SCH (09:25)
[2021-04-03] MEDS ORDERED: Ondansetron 4 MG Tab.DIS PO PRN (09:28)
[2021-04-03] MEDS: Pantoprazole 40 MG Delayed-Release Granules 1 Packet PO SCH (16:13)
[2021-04-04] MEDS: Acetaminophen 500 MG Tab PO SCH ×3 (01:19→17:24)
[2021-04-04] MEDS: Bisacodyl 5 MG Tab PO SCH ×2 (08:19→21:36)
[2021-04-04] MEDS: Docusate Sodium 100 MG Cap PO SCH ×2 (08:19→21:35)
[2021-04-04] MEDS: Cyclobenzaprine 10 MG Tab PO PRN ×2 (08:19→21:35)
[2021-04-04] MEDS: Venlafaxine 75 MG Tab PO SCH ×2 (08:20→21:35)
[2021-04-04] MEDS: Heparin Sodium 5,000 Units/ML Vial SUBCUT SCH ×2 (08:21→21:36)
[2021-04-04] MEDS: Estradiol 0.5 MG Tab PO SCH (08:21)
[2021-04-04] MEDS: valACYclovir 1,000 MG Tab PO SCH (08:21)
[2021-04-04] MEDS: Bisacodyl 10 MG Supp RECTAL SCH ×3 (08:25→21:34)
--- NOTE | 2021-04-04 09:06 | PN ---
DATE OF SERVICE: 04/04/2021 SUBJECTIVE: Orly did have a gentle fall yesterday. She said she did not hit her head. Has had no difficulty. Oral intake 1250. Urine output 900. She is passing gas, but has not had a bowel movement yet. Remainder of review of systems negative for any pertinent positives and negatives. OBJECTIVE: GENERAL: Orly Hoffman is a 30-year-old female. She is alert and orientated. VITAL SIGNS: TPR is 95, 65, 16. Blood pressure is 109/62. HEENT: Negative. NECK: Supple. HEART: Regular rate and rhythm. LUNGS: Clear. ABDOMEN: Aquacel dressings on. Abdominal binder is on. EXTREMITIES: Without peripheral edema. ASSESSMENT: Exploratory laparotomy with: 1. Distal gastrectomy with Lance-en-Y gastroenterostomy. 2. Small bowel strictureplasty. Postoperative diagnoses: 1. Persistent bile reflux gastritis with thick and densely scarred proximal duodenum. 2. Focal stricture at the point of transition with takedown divisions of ileostomy. 3. Date of procedure: 04/01/2021. Surgeon: Lorne Cabezas MD. PLAN: 1. Dulcolax suppositories per rectum b.i.d. 2. We will evaluate p.r.n. 3. Plan discharge in a.m. Jenn Carreno PA-C /[id number]
[2021-04-04] MEDS: HYDROmorphone 2 MG Tab PO PRN (14:20)
[2021-04-04] MEDS: Pantoprazole 40 MG Delayed-Release Granules 1 Packet PO SCH (17:24)
[2021-04-05] MEDS: Acetaminophen 500 MG Tab PO SCH ×2 (02:59→10:31)
[2021-04-05] MEDS: HYDROmorphone 2 MG Tab PO PRN (05:09)
[2021-04-05] MEDS: Docusate Sodium 100 MG Cap PO SCH (08:19)
[2021-04-05] MEDS: Estradiol 0.5 MG Tab PO SCH (08:19)
[2021-04-05] MEDS: Venlafaxine 75 MG Tab PO SCH (08:19)
[2021-04-05] MEDS: Bisacodyl 10 MG Supp RECTAL SCH (08:19)
[2021-04-05] MEDS: valACYclovir 1,000 MG Tab PO SCH (08:20)
[2021-04-05] MEDS: Bisacodyl 5 MG Tab PO SCH (08:20)
[2021-04-05] MEDS: Heparin Sodium 5,000 Units/ML Vial SUBCUT SCH (08:20)
--- NOTE | 2021-04-06 13:59 | DISCH ---
FINAL DIAGNOSES: 1. Persistent bile reflux gastritis associated with a thickened densely scarred proximal duodenum. 2. Focal stricture at the point of takedown of duodeno-ileostomy. 3. Bariatric surgery status post previous laparoscopic duodenal switch. 4. History of hypertension. 5. History of obstructive sleep apnea. 6. History of polycystic ovary syndrome. 7. History of anxiety and depression. OPERATIVE PROCEDURES: Done on the date of admission of 04/01/2021, exploratory laparotomy with: 1. Distal gastrectomy with Lance-en-Y gastroenterostomy. 2. Small bowel stricturoplasty. SUMMARY: This is a 30-year-old female presenting with severe ongoing reflux and epigastric discomfort following a previous duodenal switch. The patient was noted to have extensive bowel gastritis, and after preoperative evaluation and discussion, wished to undergo revision of the duodenal switch. At the time of exploration, the proximal duodenum was noted to be markedly thickened and scarred, likely related to some persistent inflammation in that area. It was felt to be unfit for anastomosis. Given this, a distal gastrectomy was undertaken along with resection of the previous duodeno-ileostomy. At that point at the point of the reconstruction, a Lance-en-Y configuration was used in order to minimize problems with postoperative bile reflux. There was also a separate small bowel stricture in the area adjacent to the duodeno-ileostomy which was treated with a stricturoplasty. Postoperatively, the patient has done well at this point with having some bowel movements, but overall the persistent nausea she had preoperatively is now absent and she is still tolerating a step-2 diet. She will be following up with Jenn Carreno in roughly 10 days in [facility]. She will be instructed to remove her Aquacel dressing in 3 days, and otherwise, I suspect her diet can probably be advanced somewhat more quickly than typical, and after the first appointment should be sent home on her usual medications plus Tylenol and Celebrex. The patient will not be needing any narcotics postprocedure. /[id number]
--- NOTE | 2021-04-14 12:56 | OR ---
DATE OF PROCEDURE: 04/01/2021 SURGEON: Lorne Cabezas MD PREOPERATIVE DIAGNOSIS: Ongoing nausea associated with persistent bile reflux gastritis. POSTOPERATIVE DIAGNOSIS: 1. Persistent nausea associated with bile reflux gastritis with thickened, densely scarred, proximal duodenum. 2. Focal stricture at the point of takedown of duodenal ileostomy. PROCEDURE PERFORMED: Exploratory laparotomy with: 1. Distal gastrectomy with Lance-en-Y gastroenterostomy (08182). 2. Small bowel stricturoplasty (44644). 3. Placement of Interceed mesh to limit recurrent adhesion formation between pelvic and abdominal wall and underlying viscera (02837). ANESTHESIA: General. FORKLIFT MATERIAL HANDLER: Jenn Carreno PA-C INDICATIONS FOR PROCEDURE: This is a 30-year-old status post previous duodenal switch, presenting with ongoing nausea and associated excess weight loss. Recent endoscopy showed marked gastritis associated with a large amount of retained bile. This would likely be indicative of a problem with gastric motility in terms of the bile coming up from the area of the duodenal ileostomy. The plan is to proceed with exploratory laparotomy, takedown of duodenal ileostomy, and formation of a Lance-en-Y configuration, delivering the bile to a more distal location within the small bowel beyond the upper anastomosis. Potential risks of the procedure including bleeding, infection, leaks from GI tract closures, possible incomplete relief of symptoms related to the procedure were all gone over, and the patient wishes to proceed. DETAILS OF PROCEDURE: The patient was taken to the operating room and placed in a supine position. After general endotracheal anesthesia was induced, a Cole catheter was inserted and the abdomen prepped and draped. A midline incision from the xiphoid to just above the umbilicus was made and carried down through the full thickness of the abdominal wall. On entering the peritoneal cavity, some underlying adhesions between the previous sleeve gastrectomy and duodenal ileostomy were taken down. The proximal duodenum adjacent to the anastomosis was noted to be very thickened and almost rock-hard indicative of multiple cycles of inflammation of the area, and this was felt not to be amenable to a satisfactory anastomosis. Given this, the distal most stomach was divided with a ABHISHEK black load after freeing up of some adhesions. The small bowel attached to the duodenum and duodenal ileostomy was then divided as well and the remaining attachments to the distal most stomach, proximal duodenum, and the associated duodenal ileostomy were taken down with cautery and ABHISHEK beth and, as specimens, delivered from the field. There was a significant stricture at the point where the small bowel was taken off the duodenal ileostomy. This was treated by means of stricturoplasty with the 2 ends of the bowel being layed up against each other and an enterotomy placed with one limb of the linear stapler being placed in each arm of the bowel. Initially, a 60 mm internal firing was accomplished followed by a 30 mm internal firing and the common opening then closed with a ABHISHEK purple load, thus completing the stricturoplasty. The small bowel was then mapped out such that ultimately the patient would have a Lance limb of 60 cm, a biliopancreatic limb of 320 cm, and common limb of 240 cm. The small bowel was divided at that point 60 cm above the intended point of the subsequent enteroenterostomy with a ABHISHEK stapler. The anastomosis was initially completed with the stapler placed between the distal most stomach and the small bowel at that level with an internal firing of the ABHISHEK black load, common opening then closed with a purple load, and the angles anastomosed and reinforced with some 3-0 Vicryl stitch. The enteroenterostomy was then accomplished again 60 cm further distal with an internal firing of the ABHISHEK nicholson load and the common opening closed with a purple load, angles anastomosed and reinforced with 3-0 Vicryl stitch in this case, and mesenteric defect approximated with 2-0 silk stitch. At that point, the small bowel measurements were reconfirmed as noted above. The abdomen was irrigated with antibiotic-containing saline solution. To limit recurrent adhesion formation, Interceed mesh was placed underneath the incision, and from there, down toward the lower abdomen and pelvis. Both anastomoses were reinforced with fibrin sealant and the fascia approximated with #2 Vicryl stitch, the subcutaneous tissue with 4-0 Vicryl stitch, and the skin with beth. Prior to closure, bilateral transversus abdominis plane blocks were placed, and the patient was taken to the recovery room in satisfactory condition. Physician assistant professor of business, Jenn Carreno, played an essential role in assisting in this case, helping to position the patient, retract structures as needed, as well as suturing and cutting sutures when indicated. Her presence improved patient safety and decreased operative time. Lorne Cabezas MD /[id number]
== END 2021-04-05 11:20 | disposition home or self-care (01) | DRG 220 ==
LOC: JP.SDSSCHI 10:27 → JP.SDS 10:27 → EDSTATUS 12:30 → JP.MS 15:15 → UNDOADMIN 15:15
PROVIDERS: ADMIT Surgery; ATTEND Surgery
PROC: 0D160ZA Bypass Stomach to Jejunum, Open Approach (ICD-10-PCS; principal; 2021-04-01)
PROC: 0DQ80ZZ Repair Small Intestine, Open Approach (ICD-10-PCS; 2021-04-01)
PROC: 3E0M05Z Introduction of Adhesion Barrier into Peritoneal Cavity, Open Approach (ICD-10-PCS; 2021-04-01)
DX: K95.89 Other complications of other bariatric procedure (principal); K29.60 Other gastritis without bleeding; K21.9 Gastro-esophageal reflux disease without esophagitis; I10 Essential (primary) hypertension; G47.33 Obstructive sleep apnea (adult) (pediatric); E28.2 Polycystic ovarian syndrome; F41.9 Anxiety disorder, unspecified; F32.9 Major depressive disorder, single episode, unspecified; K52.9 Noninfective gastroenteritis and colitis, unspecified; K44.9 Diaphragmatic hernia without obstruction or gangrene; G43.909 Migraine, unspecified, not intractable, without status migrainosus; E66.9 Obesity, unspecified; E53.8 Deficiency of other specified B group vitamins; Z98.84 Bariatric surgery status; Z88.2 Allergy status to sulfonamides; Z88.1 Allergy status to other antibiotic agents; Z91.09 Other allergy status, other than to drugs and biological substances; Z79.899 Other long term (current) drug therapy; Z90.89 Acquired absence of other organs; Z68.25 Body mass index [BMI] 25.0-25.9, adult
CPT/HCPCS: 36415; 74240; 74240-26; 80053; 83735; 84100; 84703; 85025; 85027; 88307; 93005; 94762; A9270-GY; C9113; J0171; J0330; J0694; J1100; J1170; J1644; J2185; J2405; J2704; J2710; J2795; J3010; J3410; J3411; J3420; J3475; J3490; J7050; J7120; J7121

== ENCOUNTER 2021-05-27 06:13 | Day surgery (SDC) | payer BC ==
[2021-05-27] MEDS ORDERED: Scopolamine 1.5 MG Transdermal Patch TRDERM ONE (06:47)
[2021-05-27] MEDS ORDERED: Midazolam 1 MG/ML 2 ML SDV ONE (06:58)
[2021-05-27] MEDS ORDERED: Propofol 200 MG/20 ML SDV ONE (06:58)
[2021-05-27] MEDS ORDERED: fentaNYL 100 MCG/2 ML SDV ONE (06:58)
[2021-05-27] MEDS ORDERED: Lactated Ringers 1,000 ML IV SCH (07:00)
[2021-05-27 07:19] LABS: CORONAVIRUS COVID-19 NAA NEGATIVE (NEGATIVE)
[2021-05-27] MEDS ORDERED: Cyanocobalamin (Vitamin B12) 1,000 MCG/ML SDV IM ONE (07:30)
[2021-05-27] MEDS ORDERED: Glycopyrrolate 0.2 MG/ML 2 ML SDV IVPUSH ONE (07:50)
[2021-05-27] MEDS ORDERED: Dexamethasone 4 MG/ML SDV ONE (08:14)
[2021-05-27] MEDS ORDERED: Ondansetron 4 MG/2 ML SDV ONE (08:14)
[2021-05-27] MEDS ORDERED: MVI, Adult with Vitamin K 10 ML, Thiamine 200 MG, Chromium/Copper/Mang/Selen/Zn 1 ML in... IV ONE ×4 (08:15)
[2021-05-27] MEDS ORDERED: Alum Hydrox/Mag Hydrox/Simeth 360 ML, Lidocaine 2% 60 ML PO SCH ×2 (11:00)
[2021-05-29 15:12] LABS: H. PYLORI BREATH TEST Negative (Negative)
--- NOTE | 2021-06-09 09:04 | OR ---
DATE OF PROCEDURE: 05/27/2021 SURGEON: Lorne Cabezas MD PREOPERATIVE DIAGNOSIS: Persistent nausea and early satiety status post duodenal switch. POSTOPERATIVE DIAGNOSIS: Mild focal inflammation at gastrojejunostomy. PROCEDURE PERFORMED: Upper gastrointestinal endoscopy. ANESTHESIA: IV sedation. INDICATION FOR PROCEDURE: This is a 31-year-old status post a duodenal switch. The patient had some ongoing problems with nausea and persistent bile reflux gastritis and was treated on 04/01/2021 with revision including a very distal gastrectomy with Lance-en-Y gastroenterostomy. Initially, the patient did well following this, but now has once again developed early satiety and nausea. The plan is to proceed with upper GI endoscopy with biopsies and/or dilation as indicated. Potential risks including bleeding and perforation were discussed, and the patient wishes to proceed. DETAILS OF PROCEDURE: The patient was taken to the operating room and placed in a left lateral decubitus position. IV sedation was administered after which the upper GI endoscope was passed orally through the length of the esophagus to the sleeve gastrectomy portion of the duodenal switch, and from there, through the gastrojejunostomy and into the Lance limb for several centimeters. Findings included normal hypopharynx, larynx, upper esophageal sphincter, and esophageal body. At the EG junction, there was no significant inflammation present. Within the sleeve gastrectomy, there was no bile present. At the gastrojejunostomy, there was some mild focal redness and edema, but no stricturing, and again, no bile was present in that area. At that point, the upper endoscopy was completed and the patient taken to the recovery room in satisfactory condition. At this point, it is somewhat unclear as to what the cause for the patient's symptoms are. The patient did have a scopolamine patch which she is instructed to leave on another 3 days and then call if that has helped with the nausea, but if the nausea worsens after this patch is removed, we will have to move her Protonix to 40 mg p.o. b.i.d. and have Pharmacy mix 2 bottles of viscous Xylocaine with 12 ounces of Maalox and take before eating and also try taking Zofran ODT 15 minutes before meals. We will perform H. pylori breath test in the ACU postoperatively as well, and we will set up a virtual visit with physician studio assistant, Jenn Carreno, in 2 weeks. If, at that point, she is still having problems, a trial of Carafate may be beneficial. Lorne Cabezas MD /[id number]
== END 2021-05-27 12:27 | disposition home or self-care (01) ==
LOC: JP.SDS 06:13
PROVIDERS: ATTEND Surgery
DX: K29.70 Gastritis, unspecified, without bleeding (principal); K52.9 Noninfective gastroenteritis and colitis, unspecified; Z98.84 Bariatric surgery status; Z01.812 Encounter for preprocedural laboratory examination; Z20.822 Contact with and (suspected) exposure to COVID-19
CPT/HCPCS: 0241U; 43235; 81025; 83013; A9270; J1100; J2250; J2405; J2704; J3010; J3411; J3420; J3490; J7120